=== PATIENT | male | born 1960 | race Caucasian/White ===

== ENCOUNTER 2016-09-13 13:43 | Emergency (ER) | payer BC ==
[2016-09-13] MEDS ORDERED: NITROGLYCERIN 0.4 MG 25 EA TAB SL ONE ×2 (13:49)
[2016-09-13] MEDS ORDERED: ADENOSINE INJ 6 MG/2 ML SYG IV ONE ×4 (13:54→14:55)
[2016-09-13] MEDS ORDERED: MORPHINE SULFATE INJ 10 MG/ML VIAL ONE ×3 (14:02→14:56)
[2016-09-13] MEDS ORDERED: diltiaZEM DRIP 125 MG/25 ML VIAL IVPB ONE (14:13)
[2016-09-13] MEDS ORDERED: SODIUM CHLORIDE 0.9% 250ML 0 ML ONE (14:14)
[2016-09-13] MEDS ORDERED: SODIUM CHLORIDE 0.9% 100ML 100 ML IVPB ONE (14:17)
[2016-09-13 14:28] VITALS: O2SAT 96
[2016-09-13] MEDS ORDERED: SODIUM CHLORIDE 0.9% 1000ML 1,000 ML ONE (14:35)
--- NOTE | 2016-09-13 14:36 | ED.PDOC ---
History of Present Illness - General Chief Complaint: Chest Pain/HI Stated Complaint: Chest pain Time Seen by Provider: 09/13/16 13:48 Source: patient, RN notes reviewed, Vital Signs reviewed Exam Limitations: no limitations - History of Present Illness Initial Comments: Patient was working out side and just started to not feel well. [place] like he was getting over heated. He went inside, laid down and his co-workers called EMS. + diaphoresis and L arm pain. + SOB and Nausea. Denies chest pain. No similar episodes in the past. EMS gave NTG X2, Aspirin 324mg PO and Shocked with 200J. He felt better after the shock. In ER c/o bilateral arm pain, diaphoretic and pain in L arm pit. No improvement with 3rd SLNTG. HR in the 180's - Adenosine 6mg IVP w/ no change, Adenosine 12mg IV w/o change. 100J - brief improvement and pt felt better but HR stayed 16 -170's. Gave Cardizem 10mg IVP with improvement of HR down to 120. Patient given Morphine 4mg w/ improvement of pain but @ 14:30 pain is returning so will give another 4mg of Morphine IV. Timing/Duration: 1-3 hours Severity/Quality: moderate - 6/10 Location: shoulder - L arm and armpit Chest Pain Radiation: arms, shoulders Activities at Onset: other - Working outside in heat Prior Chest Pain/Cardiac Workup: no prior chest pain, no prior cardiac workup Improving Factors: other - Elctrocardioversion Worsening Factors: nothing Nitro Today/Relief: 0.4 mg x 3, provided by EMS, provided by ED, no relief Aspirin Treatment Today: 81 mg x 4, provided by EMS Associated Symptoms: diaphoresis, nausea/vomiting, shortness of breath Allergies/Adverse Reactions: Allergies NO KNOWN ALLERGY Allergy (Verified 02/15/12 08:29) Home Medications: Ambulatory Orders NK [NK] 09/13/16 Review of Systems - Review of Systems Constitutional: States: diaphoresis EENTM: States: no symptoms reported Respiratory: States: short of breath Cardiology: States: chest pain Gastrointestinal/Abdominal: States: nausea Musculoskeletal: States: see HPI Skin: States: see HPI Neurological: States: no symptoms reported All other Systems: No Change from Baseline Past Medical History (General) - Patient Medical History Hx Cardiac Disorders: No Hx Hypertension: No Hx Diabetes: No Surgical History: appendectomy Family Medical History - Family History Father Family History: Unknown Living Status: Unknown Hx Cardiac Disease: Yes - Father - [place] @ 62 Physical Exam - Physical Exam General Appearance: Alert, Obvious distress, Ill Appearing, Well Developed, Well Groomed, Well Hydrated, Well Nourished Neck: non-tender, full range of motion, supple, normal inspection Respiratory: chest non-tender, lungs clear, normal breath sounds, no respiratory distress, no accessory muscle use Cardiovascular/Chest: no gallop, no murmur, tachycardia Gastrointestinal/Abdominal: normal bowel sounds, non tender, soft, no organomegaly, no pulsatile mass Extremity: normal range of motion, non-tender, normal inspection, no pedal edema Neurologic: alert, normal mood/affect, oriented x 3 Skin Exam: diaphoresis Progress - Progress Progress: 09/13/16 14:51 Cardizem was improving HR but dropped BP to 90's/60's so stopped. TNKase given with HEparin bolus of 5000U and Heparin drip of 1000U/hr. Left via [facility] to [facility] - Results/Orders Results/Orders: Laboratory Tests 09/13/16 09/13/16 09/13/16 13:25 13:25 13:25 WBC 15.1 H RBC 5.60 Hgb 17.4 Hct 49.5 MCV 88.4 MCH 31.0 MCHC 35.0 RDW 12.8 Plt Count 399 MPV 8.0 Absolute Neuts (auto) 7.40 H Absolute Lymphs (auto) 6.10 H Absolute Monos (auto) 1.20 H Absolute Eos (auto) 0.20 Absolute Basos (auto) 0.10 Neutrophils % 48.9 Lymphocytes % 40.8 Monocytes % 8.1 Eosinophils % 1.3 Basophils % 0.9 D-Dimer, Quantitative < 200 Sodium 138 Potassium 4.2 Chloride 106 Carbon Dioxide 16 L Anion Gap 20.2 H BUN 20 H Creatinine 1.31 H BUN/Creatinine Ratio 15.3 Random Glucose 256 H Serum Osmolality 287.0 Calcium 10.3 H Total Bilirubin 1.3 H AST 42 ALT 50 Alkaline Phosphatase 88 Creatine Kinase 144 CK-MB (CK-2) 3.0 CK-MB (CK-2) % Not Reportable Troponin I 0.02 Serum Total Protein 8.0 Albumin 4.7 Globulin 3.3 Albumin/Globulin Ratio 1.4 - EKG/XRAY/CT EKG: Tachy, ST elevation Procedures - Additional Procedures Additional Procedures: cardioversion/defib - Attempted X1 - improved symptoms but no change in heart rate or rhythm Departure - Departure Clinical Impression: STEMI (ST elevation myocardial infarction) Qualifiers: Involved coronary artery: unspecified coronary artery Qualified Code(s): I21.3 - ST elevation (STEMI) myocardial infarction of unspecified site Time of Disposition: 14:52 Disposition: Transfer to Hospital Condition: Serious Referrals: Raphael Pickard MD [Primary Care Provider] - 1-2 Weeks Home Medications: Ambulatory Orders NK [NK] 09/13/16 Critical Care Note - Critical Care Note Total Time (mins): 75 Comments: At bedside with patient from arrival during ACLS protocol until d/c via [facility] Transfer to Outside Facility - Transfer Information Accepting Provider:: Antolin Accepting Facility: [facility] Reason for Transfer: required specialist not available
[2016-09-13] MEDS ORDERED: HEPARIN SODIUM (PORCINE) 5,000 U/ML VIAL ONE (14:41)
[2016-09-13] MEDS ORDERED: TENECTEPLASE 50 MG VIAL ONE (14:42)
[2016-09-13] MEDS ORDERED: HEPARIN PREMIX 500 ML ONE (14:45)
[2016-09-13] MEDS ORDERED: MORPHINE SULFATE INJ 10 MG/ML VIAL IV ONE ×2 (14:55→15:05)
[2016-09-13] MEDS ORDERED: MORPHINE SULFATE INJ 10 MG/ML VIAL IM ONE (15:02)
[2016-09-13] MEDS ORDERED: TENECTEPLASE 50 MG VIAL IV ONE (15:02)
[2016-09-13] MEDS ORDERED: HEPARIN SODIUM (PORCINE) 5,000 U/ML VIAL IV ONE (15:02)
--- NOTE | 2016-09-13 15:04 | RAD ---
EXAM DESCRIPTION: Chest,1 View CLINICAL HISTORY: 56 years,Male,chest pain COMPARISON: June 05, 2016 FINDINGS: Lung wiggins are clear, no consolidation, effusions, or nodules. Heart size and pulmonary vascularity are normal. Bony elements are unremarkable for age. IMPRESSION: Unremarkable chest. Stable Electronically signed by: Phillip Lewis MD 09/13/2016 3:02 PM CDT
[2016-09-13] MEDS ORDERED: HEPARIN PREMIX 25,000 UNITS in PREMIX BAG 1 BAG IVS SCH (15:15)
[2016-09-13] MEDS ORDERED: diltiaZEM DRIP 125 MG in SODIUM CHLORIDE 0.9% 100ML 100 ML IVPB SCH (15:30)
[2016-09-13 15:39] VITALS: BP 89/75; TEMP 96.1
[2016-09-13] MEDS ORDERED: SODIUM CHLORIDE 0.9% 1000ML 1,000 ML IVS ONE (17:32)
== END 2016-09-13 15:10 | disposition short-term general hospital (02) ==
LOC: ER 13:43
DX: I21.3 ST elevation (STEMI) myocardial infarction of unspecified site (principal); Z82.49 Family history of ischemic heart disease and other diseases of the circulatory system

== ENCOUNTER 2016-09-25 04:21 | Emergency (ER) | payer BC ==
[2016-09-25 04:33] VITALS: TEMP 97.3
[2016-09-25] MEDS ORDERED: MORPHINE SULFATE INJ 10 MG/ML VIAL IV ONE (04:54)
[2016-09-25] MEDS ORDERED: SODIUM CHLORIDE 0.9% 500ML 500 ML IVS ONE (05:11)
--- NOTE | 2016-09-25 05:14 | ED.PDOC ---
History of Present Illness - General Chief Complaint: Problem Stated Complaint: left flank/abd pain Time Seen by Provider: 09/25/16 05:10 Source: patient Additional Information: L FLANK PAIN STARTING LAST PM. SIMILAR TO PREVIOUS KIDNEY STONES EXCEPT NO VOMITING. SHARP RADIATES INTO LLQ. - History of Present Illness Timing/Duration: other - 8 HOURS AGO Improving Factors: nothing Worsening Factors: nothing Associated Symptoms: other - DYSURIA Allergies/Adverse Reactions: Allergies NO KNOWN ALLERGY Allergy (Verified 02/15/12 08:29) Home Medications: Ambulatory Orders Acetaminophen W/ Codeine [Tylenol W/ CODEINE #3] 1 ea PO Q6HR PRN #24 09/25/16 Apixaban [Eliquis] 5 mg PO 09/25/16 Aspirin [Aspirin EC] 81 mg PO 09/25/16 Atorvastatin Calcium [Lipitor] 80 mg PO 09/25/16 Clopidogrel Bisulfate [Plavix] 75 mg PO QD 09/25/16 Lisinopril [Zestril] 2.5 mg PO 09/25/16 Metformin HCl 500 mg PO 09/25/16 Metoprolol Succinate [Metoprolol Succinate ER] 75 mg PO 09/25/16 Mexiletine HCl 150 mg PO 09/25/16 Review of Systems - Review of Systems Constitutional: Denies: chills, fever EENTM: States: no symptoms reported Respiratory: Denies: cough, short of breath, wheezing Cardiology: Denies: chest pain, palpitations Gastrointestinal/Abdominal: States: abdominal pain. Denies: diarrhea, nausea, vomiting Genitourinary: States: dysuria, hematuria. Denies: frequency Musculoskeletal: States: back pain. Denies: neck pain Skin: States: no symptoms reported Neurological: States: no symptoms reported Endocrine: States: no symptoms reported Hematologic/Lymphatic: States: no symptoms reported Past Medical History (General) - Patient Medical History Hx Cardiac Disorders: Yes - recent stents, external defib. Hx Congestive Heart Failure: Yes Hx Hypertension: Yes Hx Diabetes: Yes - Vaccination History Hx Influenza Vaccination: No Immunizations Up to Date: Yes - Social History Hx Tobacco Use: Yes Family Medical History - Family History Father Family History: Unknown Living Status: Unknown Hx Cardiac Disease: Yes - Father - [place] @ 62 Physical Exam - Physical Exam General Appearance: Alert, Anxious Eye Exam: bilateral normal Ears, Nose, Throat: hearing grossly normal, normal ENT inspection Neck: supple, normal inspection Respiratory: lungs clear, normal breath sounds Cardiovascular/Chest: regular rate, rhythm, no murmur Gastrointestinal/Abdominal: normal bowel sounds, soft, no organomegaly, other - MILD LLQ TTP Back Exam: normal inspection, no CVA tenderness Extremity: normal range of motion, non-tender, normal inspection Neurologic: normal mood/affect, oriented x 3 Skin Exam: warm/dry Lymphatic: no adenopathy Progress - Progress Progress: 09/25/16 06:44 PAIN FREE. LEUKOCYTOSIS BUT NO OTHER EVIDENCE OF INFX. SL DEHYDRATION BUT [facility] WILL NOT GIVE IVF HOWEVER SINCE RECENT HX CHF. HAS APPT TODAY WITH PCP Departure - Departure Clinical Impression: Renal colic on left side Hypertension Qualifiers: Hypertension type: essential hypertension Qualified Code(s): I10 - Essential ( primary) hypertension Time of Disposition: 06:49 Disposition: Discharge to Home or Self Care Condition: Good Departure Forms: ED Discharge - Pt. Copy, Patient Portal Self Enrollment Referrals: Raphael Pickard MD [Primary Care Provider] - 1-2 Weeks Prescriptions: Acetaminophen W/ Codeine [Tylenol W/ CODEINE #3] 1 ea PO Q6HR PRN #24 PRN Reason: Pain Home Medications: Ambulatory Orders Acetaminophen W/ Codeine [Tylenol W/ CODEINE #3] 1 ea PO Q6HR PRN #24 09/25/16 Apixaban [Eliquis] 5 mg PO 09/25/16 Aspirin [Aspirin EC] 81 mg PO 09/25/16 Atorvastatin Calcium [Lipitor] 80 mg PO 09/25/16 Clopidogrel Bisulfate [Plavix] 75 mg PO QD 09/25/16 Lisinopril [Zestril] 2.5 mg PO 09/25/16 Metformin HCl 500 mg PO 09/25/16 Metoprolol Succinate [Metoprolol Succinate ER] 75 mg PO 09/25/16 Mexiletine HCl 150 mg PO 09/25/16
[2016-09-25 07:35] VITALS: BP 108/77; O2SAT 97
== END 2016-09-25 07:30 | disposition home or self-care (01) ==
LOC: ER 04:21
DX: N23 Unspecified renal colic (principal); I11.0 Hypertensive heart disease with heart failure; I50.9 Heart failure, unspecified; E11.9 Type 2 diabetes mellitus without complications; Z98.61 Coronary angioplasty status; Z95.810 Presence of automatic (implantable) cardiac defibrillator; Z82.49 Family history of ischemic heart disease and other diseases of the circulatory system; Z79.82 Long term (current) use of aspirin; Z79.02 Long term (current) use of antithrombotics/antiplatelets; Z79.899 Other long term (current) drug therapy; Z87.891 Personal history of nicotine dependence
CPT/HCPCS: 36415; 80053; 81001; 85025; J2270; J7040

== ENCOUNTER 2016-09-29 06:21 | Emergency (ER) | payer BC ==
--- NOTE | 2016-09-29 06:56 | ED.PDOC ---
History of Present Illness - General Source: patient Exam Limitations: no limitations - History of Present Illness Initial Comments: the patient is a 56-year-old male presenting to the emergency room secondary to approximately 12 hours of shortness of breath. The patient had a large IL last monthand has had an external defibrillator vest in place since that time. Cardiology has been keeping his blood pressures in the low normal range. He is anticoagulated. He is on several blood pressure medications. He does get more short of breath with lying back. He does get short of breath with activity. He was in a few days ago and received 500 cc of normal saline for a kidney stone that apparently passed. He has not been having any fevers. The cough has not really been productive. No chest pain. No syncope or near syncope. TheMI several weeks ago was apparently very significants he had to have an aortic balloon pump placed at one point. He had been doing well at home and not feeling really short of breath at rest until yesterday. He reports that his weights that he has been following at home have not been going up. He reports no new leg pain. No new swelling. Timing/Duration: 24 hours Severity: moderate Improving Factors: nothing Worsening Factors: nothing Associated Symptoms: cough, loss of appetite, malaise, shortness of breath, weakness <Chucky Hooper L - Last Filed: 09/29/16 06:53> <Dominick Pérez - Last Filed: 09/29/16 10:34> - General Chief Complaint: Respiratory Problem Stated Complaint: shortness of breath Time Seen by Provider: 09/29/16 06:47 - History of Present Illness Allergies/Adverse Reactions: Allergies NO KNOWN ALLERGY Allergy (Verified 02/15/12 08:29) Home Medications: Ambulatory Orders Acetaminophen W/ Codeine [Tylenol W/ CODEINE #3] 1 ea PO Q6HR PRN #24 09/25/16 Apixaban [Eliquis] 5 mg PO 09/25/16 Aspirin [Aspirin EC] 81 mg PO 09/25/16 Atorvastatin Calcium [Lipitor] 80 mg PO 09/25/16 Clopidogrel Bisulfate [Plavix] 75 mg PO QD 09/25/16 Lisinopril [Zestril] 2.5 mg PO 09/25/16 Metformin HCl 500 mg PO 09/25/16 Metoprolol Succinate [Metoprolol Succinate ER] 75 mg PO 09/25/16 Mexiletine HCl 150 mg PO 09/25/16 Review of Systems - Review of Systems Constitutional: States: malaise, weakness EENTM: States: no symptoms reported Respiratory: States: cough, orthopnea, short of breath Cardiology: States: no symptoms reported Gastrointestinal/Abdominal: States: no symptoms reported Genitourinary: States: no symptoms reported Musculoskeletal: States: no symptoms reported Skin: States: no symptoms reported Neurological: States: anxiety Endocrine: States: no symptoms reported Hematologic/Lymphatic: States: no symptoms reported All other Systems: No Change from Baseline <Chucky Hooper - Last Filed: 09/29/16 06:53> Past Medical History (General) - Patient Medical History Hx Cardiac Disorders: Yes - recent stents, external defib. Hx Congestive Heart Failure: No Hx Hypertension: Yes Hx Diabetes: Yes - Vaccination History Hx Influenza Vaccination: No Immunizations Up to Date: Yes - Social History Hx Tobacco Use: Yes <Chucky Hooper Stiven - Last Filed: 09/29/16 06:53> Family Medical History - Family History Father Family History: Unknown Living Status: Unknown Hx Cardiac Disease: Yes - Father - [place] @ 62 <Chucyk Hooper - Last Filed: 09/29/16 06:53> Physical Exam - Physical Exam General Appearance: Alert, Comfortable, No apparent distress Eye Exam: bilateral normal Ears, Nose, Throat: hearing grossly normal, normal ENT inspection, normal pharynx Neck: non-tender, full range of motion, supple Respiratory: chest non-tender, no respiratory distress, no accessory muscle use , other - he does have some bibasilar rales. No wheezes. Cardiovascular/Chest: normal peripheral pulses, regular rate, rhythm, other - trace edema to bilateral lower extremities Peripheral Pulses: radial,right: 2+, radial,left: 2+, dorsalis pedis,right: 2+, dorsalis pedis,left: 2+ Gastrointestinal/Abdominal: non tender, soft Rectal Exam: deferred Back Exam: normal inspection, no CVA tenderness, no vertebral tenderness Extremity: normal range of motion, non-tender, no calf tenderness, normal capillary refill Neurologic: program host II-XII nml as tested, alert, normal mood/affect, oriented x 3 Skin Exam: normal color Comments: Vital Signs - 24 hr 09/29/16 09/29/16 09/29/16 06:29 06:36 06:57 Temperature 97.1 F L Pulse Rate [ 74 72 Apical] Respiratory 18 Rate Blood Pressure 110/74 [Left Arm] O2 Sat by Pulse 94 L 95 Oximetry <Chucky Hooper Stiven - Last Filed: 09/29/16 06:53> Progress - Progress Progress: 09/29/16 06:58 the patient is a 56-year-old male presenting to the emergency room secondary to shortness of breath starting last night. Lab work is being sent. The patient was not hypoxic upon arrival. he is not having chest pain. He has cardioverted back into a normal sinus rhythm from apparently what was atrial fibrillation. He reports that he did have a clot in his atria on echocardiogram that they were anticoagulating for waiting to cardiovert on. clinically this sounds like congestive heart failure. Source of the trigger is uncertain. He did receive a 500 cc bolus earlier this week for a kidney stone. He has not had chest pain. He did apparently receive 5 stents at the outside hospital a few weeks ago. Given the low voltage on the EKG and not any other information back from her studies yet, if no other definitive etiology is found for the shortness of breath and evaluation with echocardiogram to rule out significant pericardial effusion may be warranted. The patient is being handed off to oncoming ER staff. - Results/Orders Results/Orders: EKG shows normal sinus rhythm at a rate of 75 bpm. There is fairly low voltage on his EKG. There is a mild right axis deviation. There is evidence of a septal infarct. QT interval is normal. <Chucky Hooper L - Last Filed: 09/29/16 06:53> Departure <Chucky Hooper - Last Filed: 09/29/16 06:53> - Departure Time of Disposition: 10:33 <Dominick Pérez - Last Filed: 09/29/16 10:34> - Departure Clinical Impression: Shortness of breath, Coronary angioplasty status, Hx of heart artery stent Congestive heart failure (CHF) Qualifiers: Congestive heart failure type: unspecified congestive heart failure type Congestive heart failure chronicity: unspecified congestive heart failure chronicity Qualified Code(s): I50.9 - Heart failure, unspecified Disposition: Transfer to Hospital Condition: Fair Referrals: Raphael Pickard MD [Primary Care Provider] - 1-2 Weeks Home Medications: Ambulatory Orders Acetaminophen W/ Codeine [Tylenol W/ CODEINE #3] 1 ea PO Q6HR PRN #24 09/25/16 Apixaban [Eliquis] 5 mg PO 09/25/16 Aspirin [Aspirin EC] 81 mg PO 09/25/16 Atorvastatin Calcium [Lipitor] 80 mg PO 09/25/16 Clopidogrel Bisulfate [Plavix] 75 mg PO QD 09/25/16 Lisinopril [Zestril] 2.5 mg PO 09/25/16 Metformin HCl 500 mg PO 09/25/16 Metoprolol Succinate [Metoprolol Succinate ER] 75 mg PO 09/25/16 Mexiletine HCl 150 mg PO 09/25/16 Transfer to Outside Facility - Transfer Information Accepting Provider:: Dr. Christiansen-fast food team member/Dr. Aston mac md Accepting Facility: [facility] Reason for Transfer: required specialist not available - fast food team member <Dominick Pérez - Last Filed: 09/29/16 10:34>
--- NOTE | 2016-09-29 07:08 | RAD ---
Clinical History : sob 24 hrs , MAIN Exam : PA and lateral views of the chest 09/29/2016 6:48 AM CDT Comparisons : Portable AP view of the chest September 13, 2016 Findings : There is mild peribronchial thickening throughout the lungs bilaterally with patchy bilateral perihilar and lower lobe airspace disease. . The heart is stable in size. The mediastinal contours are normal in appearance. The thoracic spine is age appropriate. The shoulders are unremarkable. Limited evaluation of the upper abdomen demonstrates no gross abnormalities. Impression: Peribronchial thickening with patchy perihilar and lower lobe airspace disease bilaterally, likely representing pulmonary edema though a component of infectious pneumonia is also suspected. Electronically signed by: Kishore Palmer MD 09/29/2016 7:07 AM CDT
[2016-09-29 10:38] VITALS: BP 110/68
[2016-09-29 10:53] VITALS: TEMP 95.6; O2SAT 95
== END 2016-09-29 10:53 | disposition short-term general hospital (02) ==
LOC: ER 06:21
DX: I11.0 Hypertensive heart disease with heart failure (principal); I50.9 Heart failure, unspecified; I25.2 Old myocardial infarction; Z98.61 Coronary angioplasty status; Z82.49 Family history of ischemic heart disease and other diseases of the circulatory system; Z79.82 Long term (current) use of aspirin; Z79.01 Long term (current) use of anticoagulants; Z87.442 Personal history of urinary calculi

== ENCOUNTER 2016-10-27 17:03 | Emergency (ER) | payer BC ==
[2016-10-27] MEDS ORDERED: SODIUM CHLORIDE 0.9% (FLUSH) 10 ML SYG IV PRN (17:26)
[2016-10-27] MEDS ORDERED: NITROGLYCERIN 0.4 MG 25 EA TAB SL ONE (17:26)
--- NOTE | 2016-10-27 17:43 | ED.PDOC ---
History of Present Illness - General Chief Complaint: Cardiovascular Problem Stated Complaint: chest pain Time Seen by Provider: 10/27/16 17:04 Source: patient, RN notes reviewed, Vital Signs reviewed Exam Limitations: no limitations - History of Present Illness Initial Comments: Patient comes in with c/o chest pain and back pain that started last night and worsened today. He had a major cardiac event in August. + nausea and vomiting. Denies SOB. + diaphoresis. Pain is substernal pressure type pain. Timing/Duration: 24 hours Severity/Quality: moderate - 7/10, pressure Location: substernal, back Chest Pain Radiation: back Activities at Onset: none Prior Chest Pain/Cardiac Workup: heart attack Improving Factors: nothing Worsening Factors: nothing Nitro Today/Relief: 0.4 mg x 2, provided by ED Aspirin Treatment Today: 325 mg x 1, provided at home Associated Symptoms: back pain, diaphoresis, nausea/vomiting Allergies/Adverse Reactions: Allergies NO KNOWN ALLERGY Allergy (Verified 10/27/16 17:21) Home Medications: Ambulatory Orders Apixaban [Eliquis] 5 mg PO Q12H 09/25/16 Aspirin [Aspirin EC] 81 mg PO DAILY 09/25/16 Atorvastatin Calcium [Lipitor] 80 mg PO DAILY 09/25/16 Clopidogrel Bisulfate [Plavix] 75 mg PO QD 09/25/16 Lisinopril [Zestril] 2.5 mg PO DAILY 09/25/16 Metformin HCl 500 mg PO BID 09/25/16 Metoprolol Succinate [Metoprolol Succinate ER] 75 mg PO BID 09/25/16 Review of Systems - Review of Systems Constitutional: States: diaphoresis. Denies: chills, fever, malaise EENTM: States: no symptoms reported Respiratory: Denies: cough, short of breath Cardiology: States: chest pain, palpitations Gastrointestinal/Abdominal: States: nausea, vomiting. Denies: abdominal pain Musculoskeletal: States: see HPI Skin: States: no symptoms reported Neurological: States: no symptoms reported All other Systems: No Change from Baseline Past Medical History (General) - Patient Medical History Hx Cardiac Disorders: Yes - recent stents, external defib. Hx Congestive Heart Failure: No Hx Hypertension: Yes Hx Diabetes: Yes Surgical History: other - Vaccination History Hx Influenza Vaccination: No - Social History Hx Tobacco Use: Yes Hx Alcohol Use: No Hx Substance Use: No Hx Substance Use Treatment: No Hx Depression: No Family Medical History - Family History Father Family History: Unknown Living Status: Unknown Hx Cardiac Disease: Yes - Father - [place] @ 62 Physical Exam - Physical Exam General Appearance: Alert, Obvious distress, Ill Appearing, Well Developed, Well Groomed, Well Nourished Neck: supple, normal inspection Respiratory: chest non-tender, lungs clear, normal breath sounds, no respiratory distress, no accessory muscle use Cardiovascular/Chest: no gallop, no murmur, irregularly irregular Gastrointestinal/Abdominal: normal bowel sounds, non tender, soft, no organomegaly, no pulsatile mass Extremity: non-tender, normal inspection Neurologic: alert, normal mood/affect, oriented x 3 Skin Exam: diaphoresis, pallor Comments: Vital Signs 10/27/16 10/27/16 17:05 17:40 Temperature 97.9 F Pulse Rate [ 154 H 141 H pulse ox] Respiratory 16 20 Rate Blood Pressure 143/95 124/90 [Left Arm] O2 Sat by Pulse 97 97 Oximetry Progress - Progress Progress: 10/27/16 18:04 Discussed patient with [facility], Dr. Maldonado @ [facility] who would like patient transferred to [facility]. Dr. Nichole, ER doctor accepted patient in transfer. Minimal change in chest pain with SLNTG X2 Cardizem 10mg IV given - HR 120's -150's Will give Morphine 5mg IV - Results/Orders Results/Orders: Laboratory Tests 10/27/16 10/27/16 17:32 17:32 WBC 14.2 H RBC 4.96 Hgb 14.8 Hct 43.9 MCV 88.5 MCH 29.9 MCHC 33.8 RDW 13.9 Plt Count 354 MPV 7.4 Absolute Neuts (auto) 12.00 H Absolute Lymphs (auto) 1.30 Absolute Monos (auto) 0.60 Absolute Eos (auto) 0.20 Absolute Basos (auto) 0.10 Neutrophils % 84.1 H Lymphocytes % 9.3 L Monocytes % 4.4 Eosinophils % 1.5 Basophils % 0.7 PT 15.0 H INR 1.330 PTT (SP) 39.1 H D-Dimer, Quantitative 268 H* Sodium 139 Potassium 3.9 Chloride 107 Carbon Dioxide 21 Anion Gap 14.9 BUN 15 Creatinine 0.94 BUN/Creatinine Ratio 16.0 Random Glucose 160 H Serum Osmolality 281.8 Calcium 9.4 Magnesium 1.8 Total Bilirubin 1.1 H Direct Bilirubin 0.2 Indirect Bilirubin 0.9 H AST 27 ALT 46 Alkaline Phosphatase 156 H Creatine Kinase 88 CK-MB (CK-2) 1.9 CK-MB (CK-2) % Not Reportable Troponin I 0.06 H B-Natriuretic Peptide 839.0 H* Serum Total Protein 8.3 H Albumin 4.5 - EKG/XRAY/CT EKG: Atrial, Fibrillation - with RVR, ST elevation - V2-5, Changed from - Comments: Rate 151 Departure - Departure Clinical Impression: Atrial fibrillation with RVR STEMI (ST elevation myocardial infarction) Qualifiers: Involved coronary artery: unspecified coronary artery Qualified Code(s): I21.3 - ST elevation (STEMI) myocardial infarction of unspecified site Time of Disposition: 17:52 Disposition: Transfer to Hospital Condition: Serious Departure Forms: ED Discharge - Pt. Copy, Patient Portal Self Enrollment Referrals: Raphael Pickard MD [Primary Care Provider] - 1-2 Weeks Home Medications: Ambulatory Orders Apixaban [Eliquis] 5 mg PO Q12H 09/25/16 Aspirin [Aspirin EC] 81 mg PO DAILY 09/25/16 Atorvastatin Calcium [Lipitor] 80 mg PO DAILY 09/25/16 Clopidogrel Bisulfate [Plavix] 75 mg PO QD 09/25/16 Lisinopril [Zestril] 2.5 mg PO DAILY 09/25/16 Metformin HCl 500 mg PO BID 09/25/16 Metoprolol Succinate [Metoprolol Succinate ER] 75 mg PO BID 09/25/16 Critical Care Note - Critical Care Note Total Time (mins): 60 Transfer to Outside Facility - Transfer Information Accepting Provider:: Dr. Nichole - ER and Dr. Maldonado - [facility] Accepting Facility: [facility] Reason for Transfer: required specialist not available - [facility]
[2016-10-27] MEDS ORDERED: MORPHINE SULFATE INJ 10 MG/ML VIAL IV ONE (18:02)
--- NOTE | 2016-10-27 18:14 | RAD ---
EXAM DESCRIPTION: Chest,1 View CLINICAL HISTORY: 56 years Male CHEST PAIN COMPARISON: 09/29/2016 FINDINGS: Stable cardiac size. There has been significant interval improvement in pulmonary aeration when compared to the previous study with near complete resolution of infiltrates. Small amount of residual infiltrate may be present in lung bases left greater than right. No pleural fluid or pneumothorax. IMPRESSION: Significant interval improvement in pulmonary infiltrates as compared to the previous exam likely reflecting improving pulmonary edema. Small amount of residual interstitial infiltrate suggested in the lung bases left greater than right Electronically signed by: Meredith Reid 10/27/2016 6:13 PM CDT
[2016-10-27 18:44] VITALS: BP 121/81; TEMP 97.7; O2SAT 96
== END 2016-10-27 18:25 | disposition short-term general hospital (02) ==
LOC: ER 17:03
DX: I21.3 ST elevation (STEMI) myocardial infarction of unspecified site (principal); I48.91 Unspecified atrial fibrillation; Z79.82 Long term (current) use of aspirin; Z79.02 Long term (current) use of antithrombotics/antiplatelets; I10 Essential (primary) hypertension; E11.9 Type 2 diabetes mellitus without complications; Z98.61 Coronary angioplasty status
CPT/HCPCS: 36415; 71010; 80048; 80076; 82550; 82553; 83880; 84484; 85025; 85379; 85610; 85730; 93005; J2270

== ENCOUNTER → 2017-03-11 | Outpatient (CLI) | payer BC ==
--- NOTE | 2017-03-11 22:01 | US ---
EXAM DESCRIPTION: Venous,Lower Extremity RT: ULTRASOUND. CLINICAL HISTORY: PAIN IN LIMB COMPARISON: None Available. TECHNIQUE: Two -dimensional and doppler sonographic evaluation of the deep venous system of the right lower extremity. FINDINGS: Doppler evaluation shows normal color flow and normal phasicity and augmentation of the right common femoral vein, femoral vein, popliteal vein, greater saphenous vein, peroneal, and posterior tibial vein. The right lower extremity deep veins showed normal occlusion with transducer pressure. Two-dimensional survey showed no echogenic thrombus within these veins. IMPRESSION: 1. Duplex ultrasound evaluation of the right lower extremity deep venous system showing no evidence of thrombosis or embolism. Electronically signed by: Dom Umana MD 03/11/2017 10:00 PM [employer] TECH[employer] Workstation: [id number]
== END | disposition home or self-care (01) ==
LOC: RAD 10:18
PROVIDERS: ATTEND Family Medicine
DX: M79.609 Pain in unspecified limb (principal)

== ENCOUNTER → 2017-03-13 | Outpatient (CLI) | payer BC | LOC: GMAH 10:52 | PROVIDERS: ATTEND Family Medicine | DX: Z00.00 Encounter for general adult medical examination without abnormal findings (principal); Z12.5 Encounter for screening for malignant neoplasm of prostate ==

== ENCOUNTER → 2017-04-23 | Outpatient (CLI) | payer BC ==
--- NOTE | 2017-04-23 16:33 | US ---
EXAM DESCRIPTION: Venous,Lower Extremity LT CLINICAL HISTORY: 56 years Male PAIN IN LEFT LEG COMPARISON: None. TECHNIQUE: Duplex imaging performed to evaluate the left lower extremity venous structures. Compression imaging and augmentation imaging performed. The common femoral, superficial femoral, popliteal, greater saphenous and posterior tibial veins were examined. FINDINGS: No thrombus is identified in the left lower extremity venous structures. IMPRESSION: No DVT is identified in the left lower extremity. Electronically signed by: Meredith Reid MD 04/23/2017 4:33 PM [facility]
== END ==
LOC: GMAH 15:54
PROVIDERS: ATTEND Family Medicine
DX: M79.605 Pain in left leg (principal)

== ENCOUNTER → 2017-04-30 | Outpatient (CLI) | payer BC ==
--- NOTE | 2017-04-30 15:45 | MRI ---
EXAM DESCRIPTION: Lumbar Spine w/o Contrast MRI. CLINICAL HISTORY: RADICULOPATHY, LUMBAR REGION COMPARISON: None. TECHNIQUE: Multiplanar, multiple standard sequences, non contrast MRI, lumbar spine. FINDINGS: L5-S1: Normal signal in the disc. Disc space maintained. Minimal bilateral facet arthrosis more on the left. Minimal hypertrophy of the left flavum ligament. Mild left foraminal narrowing. Canal and right foramen are patent. L3-4 disc desiccation and disc space maintained with no significant bulging. Minimal bilateral ligament hypertrophy with normal facets. Mild canal narrowing. Bilateral foramina are patent. L4-5: Posterior disc desiccation posterior disc space and tiny posterior midline 3 mm bulge. Minimal right flavum ligament hypertrophy. Mild canal narrowing. Mild left foraminal narrowing. L2-3: Normal disc and disc space. Minimal flavum ligament hypertrophy and mild canal narrowing. Facets are unremarkable. Bilateral foramina are patent. Geographic bright T1 and T2 signal in the left T2 vertebral body and base of the pedicle minimally visible on the STIR sequence. L1-2: Anterior disc desiccation and tiny posterior bulge. Normal signal in the remainder of the disc and disc space. Posterior elements unremarkable. Canal and foramina are patent. Small geographic bright T1 and T2 signal in the right L1 vertebral body. T12-L1: Normal signal in the disc with normal disc space. Posterior elements unremarkable. Canal and foramina are patent. Conus terminates at this level. Paravertebral soft tissues are unremarkable. Normal marrow signal in the remaining vertebral bodies and the posterior elements. No scoliosis. Vertebral bodies are not compressed at any level. IMPRESSION: 1. No significant disc bulge or herniation into the canal or nerve root impingement. No canal or foraminal stenosis at any level. 2. Tiny posterior midline L4-5 disc bulge and mild canal narrowing. 3. Hemangiomas in the left T2 vertebral body and the right T1 vertebral body. Electronically signed by: Dom Umana MD 04/30/2017 3:45 PM CDT
== END ==
LOC: MRI 13:49
PROVIDERS: ATTEND Family Medicine
DX: M51.16 Intervertebral disc disorders with radiculopathy, lumbar region (principal); D18.09 Hemangioma of other sites

== ENCOUNTER → 2017-11-25 | Outpatient (CLI) | payer BC | LOC: GMAH 17:31 | PROVIDERS: ATTEND Family Medicine | DX: R31.9 Hematuria, unspecified (principal) ==

== ENCOUNTER → 2017-11-26 | Outpatient (CLI) | payer BC ==
--- NOTE | 2017-11-26 09:12 | CT ---
EXAM DESCRIPTION: Abdoment/Pelvis w/o Contrast CLINICAL HISTORY: HEMATURIA COMPARISON: February 15, 2012 TECHNIQUE: CT of the abdomen and Pelvis was performed without IV contrast. This exam was performed according to our departmental dose-optimization program, which includes automated exposure control, adjustment of the mA and/or kV according to patient size and/or use of iterative reconstruction technique. FINDINGS: There are two adjacent calculi in the middle third of the right ureter measuring approximately 8 mm and 2 mm. These result in mild to moderate right-sided hydroureteronephrosis. No additional left or right-sided urinary tract calculus is seen. There is a 2 cm low-density lesion in the right kidney which likely represent a cyst. No bladder calcification or bladder wall thickening. The prostate is enlarged, measuring 5.4 cm transverse diameter. Occasional colonic diverticulosis is noted without diverticulitis. No evidence of appendicitis. There are several tiny calcified gallstones in the gallbladder without pericholecystic inflammation or fluid. There is a small right-sided pleural effusion with overlying atelectasis in the right lung base, less likely pneumonia. A few tiny calcifications are seen within consolidated portions of the right lung likely representing granulomata. Cardiac pacemaker leads are partially visualized. Coronary artery calcifications and stents are noted. No abdominal aortic aneurysm. The exam is otherwise unremarkable for noncontrast technique. IMPRESSION: Two mid right ureteral calculi measuring 8 and 2 mm diameter resulting in mild to moderate right-sided hydroureteronephrosis. Urologic consultation is recommended. Tiny right-sided pleural effusion with overlying atelectasis in the right lung base, less likely pneumonia. Cholelithiasis without CT evidence of cholecystitis. Colonic diverticulosis without diverticulitis. Electronically signed by: Mitchell Arguelles MD 11/26/2017 9:10 AM CDT
== END ==
LOC: CT 08:11
PROVIDERS: ATTEND Family Medicine
DX: N13.2 Hydronephrosis with renal and ureteral calculous obstruction (principal); K80.20 Calculus of gallbladder without cholecystitis without obstruction; K57.30 Diverticulosis of large intestine without perforation or abscess without bleeding; R31.9 Hematuria, unspecified

== ENCOUNTER → 2018-03-30 | Outpatient (CLI) | payer BC | LOC: GMAH 11:04 | PROVIDERS: ATTEND Family Medicine | DX: E78.2 Mixed hyperlipidemia (principal); Z12.5 Encounter for screening for malignant neoplasm of prostate ==

== ENCOUNTER → 2018-10-05 | Outpatient (CLI) | payer BC | LOC: GMA MATASK 11:05 | PROVIDERS: ATTEND Family Medicine | DX: I48.2 Chronic atrial fibrillation (principal); E11.9 Type 2 diabetes mellitus without complications; E78.2 Mixed hyperlipidemia ==

== ENCOUNTER → 2019-12-28 | Outpatient (CLI) | payer BC | LOC: GMA MATASK 14:51 | PROVIDERS: ATTEND Family Medicine | DX: Z00.00 Encounter for general adult medical examination without abnormal findings (principal); Z12.5 Encounter for screening for malignant neoplasm of prostate; E11.9 Type 2 diabetes mellitus without complications ==

== ENCOUNTER 2020-01-26 16:10 | Emergency (ER) | payer BC ==
--- NOTE | 2020-01-26 16:45 | ED.PDOC ---
History of Present Illness - General Chief Complaint: Respiratory Problem Time Seen by Provider: 01/26/20 16:42 Source: patient, family Exam Limitations: no limitations - History of Present Illness Timing/Duration: other - several weeks Severity: mild Activities at Onset: none Possible Cause: no prior episodes Improving Factors: nothing Worsening Factors: nothing Associated Symptoms: denies symptoms Respiratory Risk Factors: no cause identified Allergies/Adverse Reactions: Allergies NO KNOWN ALLERGY Allergy (Verified 01/26/20 16:25) Home Medications: Ambulatory Orders Aspirin [Aspirin EC] 81 mg PO DAILY 09/25/16 Clopidogrel Bisulfate [Plavix] 75 mg PO QD 09/25/16 Metformin HCl [Metformin Hydrochloride] 500 mg PO BID 09/25/16 Dofetilide [Tikosyn] 250 mcg PO BID 01/26/20 Metoprolol Succinate [Metoprolol Succinate ER] 12.5 mg PO BID 01/26/20 Rosuvastatin Calcium [Crestor] 20 mg PO DAILY 01/26/20 Sacubitril-Valsartan [Entresto 24-26 mg] 24 mg PO BID 01/26/20 Review of Systems - Review of Systems Constitutional: States: no symptoms reported EENTM: States: no symptoms reported Respiratory: States: see HPI Cardiology: States: see HPI. Denies: chest pain, edema, palpitations, syncope Gastrointestinal/Abdominal: States: no symptoms reported Genitourinary: States: no symptoms reported Musculoskeletal: States: no symptoms reported Skin: States: no symptoms reported Neurological: States: no symptoms reported Endocrine: States: no symptoms reported Hematologic/Lymphatic: States: no symptoms reported Past Medical History (General) - Patient Medical History Hx Cardiac Disorders: Yes - recent stents, external defib. Hx Congestive Heart Failure: No Hx Hypertension: Yes Hx Diabetes: Yes - Vaccination History Hx Influenza Vaccination: No - Social History Hx Tobacco Use: Yes Hx Alcohol Use: No Hx Substance Use: No Hx Substance Use Treatment: No Hx Depression: No Family Medical History - Family History Father Family History: Unknown Living Status: Unknown Hx Cardiac Disease: Yes - Father - ID @ [id number] Physical Exam - Physical Exam General Appearance: Alert, Anxious, Well Developed, Well Groomed, Well Hydrated, Well Nourished Eyes, Ears, Nose, Throat Exam: PERRL/EOMI, normal ENT inspection, TMs normal Neck: non-tender, full range of motion Respiratory: chest non-tender, lungs clear, normal breath sounds Cardiovascular/Chest: normal peripheral pulses, regular rate, rhythm, no edema, no gallop, no JVD, no murmur Gastrointestinal/Abdominal: normal bowel sounds, non tender, soft, no organomegaly Extremity: normal range of motion, non-tender, normal inspection 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 Copy, Patient Portal Self Enrollment Instructions: Shortness of Breath (Dyspnea) Referrals: Merrick Bay MD [Primary Care Provider] - 1-2 Weeks Home Medications: Ambulatory Orders Aspirin [Aspirin EC] 81 mg PO DAILY 09/25/16 Clopidogrel Bisulfate [Plavix] 75 mg PO QD 09/25/16 Metformin HCl [Metformin Hydrochloride] 500 mg PO BID 09/25/16 Dofetilide [Tikosyn] 250 mcg PO BID 01/26/20 Metoprolol Succinate [Metoprolol Succinate ER] 12.5 mg PO BID 01/26/20 Rosuvastatin Calcium [Crestor] 20 mg PO DAILY 01/26/20 Sacubitril-Valsartan [Entresto 24-26 mg] 24 mg PO BID 01/26/20 Additional Instructions: RECOMMEND THAT YOU SEE YOUR RN SPINE FOR STRESS TESTING.
--- NOTE | 2020-01-26 17:26 | RAD ---
EXAM DESCRIPTION: Chest,2 Views CLINICAL HISTORY: 59 years Male sob COMPARISON: 10/27/2016 FINDINGS: Stable cardiomediastinal silhouette. There is a single lead defibrillator in place. No pneumothorax. Atelectasis in the right lung base with some thickening or fluid along the pleural surface. IMPRESSION: Areas of linear atelectasis in the right middle and lower lobe with some pleural fluid or pleural thickening Defibrillator in place Electronically signed by: Meredith Reid MD 01/26/2020 5:24 PM [facility]
--- NOTE | 2020-01-26 18:47 | CT ---
EXAM: CT Chest Without Intravenous Contrast CLINICAL HISTORY: lung infiltrate, vs effusion vs mass TECHNIQUE: Axial computed tomography images of the chest without intravenous contrast. Sagittal and coronal reformatted images were created and reviewed. This CT exam was performed using one or more of the following dose reduction techniques: automated exposure control, adjustment of the mA and/or kV according to patient size, and/or use of iterative reconstruction technique. COMPARISON: Limited comparison to CT abdomen which includes the lower chest 11/26/2017. FINDINGS: Limitations: None. Lungs: There is mild bilateral atelectasis. Pleural space: Mild right pleural thickening and calcification is unchanged. Heart: No abnormality noted. Mediastinum: No abnormality noted. Thyroid: No abnormality noted. Bones/joints: No acute fracture or osseous destruction. Soft tissues: Visualized portions appear normal. Vasculature: No abnormality noted. No thoracic aortic aneurysm. Lymph nodes: No enlarged lymph nodes. Upper abdomen: Visualized portions appear normal. Tubes, lines and devices: Right ventricular cardiac pacing wire present. IMPRESSION: 1. Mild right pleural thickening. 2. Minimal bilateral atelectasis. Electronically signed by: Caterina Gross MD 01/26/2020 6:45 PM RN PERIOPERATIVE
[2020-01-26 19:19] VITALS: BP 120/82; TEMP 98.2; O2SAT 95
== END 2020-01-26 19:26 | disposition home or self-care (01) ==
LOC: ER 16:10
DX: R06.00 Dyspnea, unspecified (principal); I10 Essential (primary) hypertension; E11.9 Type 2 diabetes mellitus without complications; I51.9 Heart disease, unspecified; Z95.5 Presence of coronary angioplasty implant and graft; Z95.811 Presence of heart assist device; Z79.82 Long term (current) use of aspirin; Z79.84 Long term (current) use of oral hypoglycemic drugs; Z87.891 Personal history of nicotine dependence; Z79.899 Other long term (current) drug therapy